=== PATIENT | female | born 1950 | race Caucasian/White ===

== ENCOUNTER 2016-06-30 15:08 | Inpatient (IN) | payer OTHER ==
[~2016-06-30] VITALS: Ht 157.5 cm; Wt 88.6 kg
[~2016-06-30 15:08] MED LIST: AMLODIPINE-BEN1 EAC3 PO; ASPIRIN325 MG PO; ATORVASTATIN CA80 MG PO; BUSPIRONE HCL5 MG PO; CATAPRES0.2 MG PO; CLOPIDOGREL75 MG PO; HYDROCHLOROTHIA50 MG PO; IMDUR120 MG PO; K-DUR20 MEQ PO; LANSOPRAZOLE30 MG PO; LIPITOR80 MG PO; LORAZEPAM1 MG PO; METOPROLOL SUCC50 MG PO; NICOTINE PATCH1 EAC2 TD; NITROSTAT0.4 MG SL; POTASSIUM CHLO10 ME3 PO; PRILOSEC20 MG PO; PRINIVIL20 MG PO; PROVENTIL HFA6.7 GM IH; SEREVENT DISKU50 MCG IH; SPIRIVA1 INHALATI IH; TRAMADOL HCL50 MG PO; ZETIA10 MG PO; ZOFRAN8 MG PO
[2016-06-30 16:17] LABS: HEMATOCRIT 23.1 % (36.0-46.0); MCH 29.1 PG (29.0-34.0); MCHC 33.3 G/DL (30.0-36.0); MCV 87.2 FL (83-99); RBC DIS.WIDTH-CV 13.9 % (11.8-14.6); RBC DIS.WIDTH-SD 42.3 % (39-53); RED BLOOD COUNT 2.65 M/uL (3.80-5.20)
[2016-06-30 16:26] LABS: WHITE BLOOD COUNT 3.7 K/uL (4.1-10.2)
[2016-06-30 16:30] LABS: CHLORIDE 104 mEq/L (99-109)
[2016-06-30 16:31] LABS: POTASSIUM 3.4 mEq/L (3.7-5.4); SODIUM 138 mEq/L (136-147)
[2016-06-30 16:32] LABS: GLUCOSE 93 mg/dL (70-99)
[2016-06-30 16:34] LABS: ANION GAP 8 MEQ/L (2-14)
[2016-06-30 16:36] LABS: GFR ESTIMATE (CALCULATED) > 59 mL/min/
[2016-06-30 16:37] LABS: UREA NITROGEN (BUN) 8 mg/dL (9-23)
[2016-06-30 16:41] LABS: TROP-I INTERPRETATION NEGATIVE; TROPONIN-I < 0.01 ng/mL (0.0-0.30)
[2016-06-30 17:04] LABS: MEAN PLAT.VOLUME 12.6 uM^3 (9.5-12.4); PLATELET COUNT 12 K/uL (156-360)
[2016-06-30 17:21] LABS: INFLUENZA A VIRAL ANTIGEN NEGATIVE; INFLUENZA B VIRAL ANTIGEN NEGATIVE
[2016-06-30] MEDS ORDERED: METOCLOPRAMIDE H5 MG PO (18:22)
[2016-06-30] MEDS ORDERED: OLANZAPINE10 MG PO (18:25)
[2016-06-30] MEDS ORDERED: MORPHINE SULFAT15 M1 PO (18:26)
[2016-06-30] MEDS ORDERED: CYMBALTA30 MG PO (18:26)
[2016-06-30 22:34] VITALS: BP 133/63
[2016-06-30 22:48] LABS: TROP-I INTERPRETATION NEGATIVE; TROPONIN-I < 0.01 ng/mL (0.0-0.30)
[2016-06-30 23:06] VITALS: BP 129/86
[2016-06-30 23:30] VITALS: BP 126/76
[2016-07-01] VITALS (29 sets, daily range): BP systolic 67–128; BP diastolic 38–67
[2016-07-01 06:34] LABS: ANISOCYTOSIS 1+; HYPOCHROMASIA 2+; TEAR DROP CELLS 1+
[2016-07-01 07:01] LABS: HEMATOCRIT 22.6 % (36.0-46.0); MCH 29.1 PG (29.0-34.0); MCHC 33.6 G/DL (30.0-36.0); MCV 86.6 FL (83-99); RBC DIS.WIDTH-CV 13.9 % (11.8-14.6); RBC DIS.WIDTH-SD 43.3 % (39-53); RED BLOOD COUNT 2.61 M/uL (3.80-5.20)
[2016-07-01 07:15] LABS: ANION GAP 8 MEQ/L (2-14); CHLORIDE 100 MEQ/L (99-109); GFR ESTIMATE (CALCULATED) > 59 mL/min/; GLUCOSE 115 mg/dL (70-99); POTASSIUM 3.8 MEQ/L (3.7-5.4); SAMPLE HEMOLYSIS CHECK 0; SAMPLE ICTERIC CHECK 0; SAMPLE LIPEMIA CHECK 0; SODIUM 136 MEQ/L (136-147)
[2016-07-01 07:18] LABS: UREA NITROGEN (BUN) 21 mg/dL (9-23)
[2016-07-01 07:26] LABS: TROP-I INTERPRETATION NEGATIVE; TROPONIN-I 0.02 ng/mL (0.0-0.30)
[2016-07-01 07:55] LABS: IMM.PLATELET FRACTION 2.1 (1-7)
[2016-07-01 07:56] LABS: MEAN PLAT.VOLUME 9.3 uM^3 (9.5-12.4); PLAT.SUFFICIENCY VERY DECREASED; PLATELET COUNT 12 K/uL (156-360); WHITE BLOOD COUNT 5.2 K/uL (4.1-10.2)
[2016-07-01 16:19] LABS: HEMATOCRIT 21.3 % (36.0-46.0); MCH 29.2 PG (29.0-34.0); MCHC 33.3 G/DL (30.0-36.0); MCV 87.7 FL (83-99); RBC DIS.WIDTH-CV 14.3 % (11.8-14.6); RBC DIS.WIDTH-SD 44.4 % (39-53); RED BLOOD COUNT 2.43 M/uL (3.80-5.20); WHITE BLOOD COUNT 3.8 K/uL (4.1-10.2)
[2016-07-01 16:29] LABS: CHLORIDE 104 mEq/L (99-109); POTASSIUM 3.7 mEq/L (3.7-5.4); SODIUM 138 mEq/L (136-147)
[2016-07-01 16:32] LABS: GLUCOSE 100 mg/dL (70-99)
[2016-07-01 16:33] LABS: ANION GAP 7 MEQ/L (2-14)
[2016-07-01 16:34] LABS: TOTAL BILIRUBIN 1.7 mg/dL (0.0-1.0)
[2016-07-01 16:35] LABS: ALKALINE PHOSPHATASE 84 IU/L (3-129); GFR ESTIMATE (CALCULATED) 59 mL/min/
[2016-07-01 16:36] LABS: IMM.PLATELET FRACTION 3.5 (1-7); MEAN PLAT.VOLUME 11.3 uM^3 (9.5-12.4); PLATELET COUNT 13 K/uL (156-360); UREA NITROGEN (BUN) 25 mg/dL (9-23)
[2016-07-01 17:38] LABS: METH RESISTANT S AUREUS PCR NEGATIVE (NEGATIVE)
[2016-07-01 17:46] LABS: IMM.RETIC FRACTION 22.7 % (3-19); RETIC HGB EQUIVALENT 37.3 (28-36); RETICULOCYTE COUNT 1.9 % (0.5-1.8)
[2016-07-01 17:48] LABS: PROBE CHECK PASS; SPECIMEN PROCESSING CONTROL PASS
[2016-07-01 18:41] LABS: D-DIMER LATEX NEGATIVE
[2016-07-01 18:55] LABS: SCHISTOCYTES RARE
[2016-07-01 19:04] LABS: D-DIMER ELISA 1.45 mg/L FEU (< 0.57); FIBRINOGEN 345 MG/DL (160-450); INTER. NORMALIZED RATIO 1.1; PROTHROMBIN TIME 11.1 (9.2-11.2); PTT 28.2 (25-32)
[2016-07-02] VITALS (32 sets, daily range): BP systolic 108–162; BP diastolic 47–68
[2016-07-02 04:48] LABS: CHLORIDE 109 mEq/L (99-109); POTASSIUM 3.5 mEq/L (3.7-5.4); SODIUM 137 mEq/L (136-147)
[2016-07-02 04:49] LABS: MAGNESIUM 1.4 mg/dL (1.3-2.7)
[2016-07-02 04:50] LABS: GLUCOSE 98 mg/dL (70-99)
[2016-07-02 04:52] LABS: ANION GAP 5 MEQ/L (2-14)
[2016-07-02 04:54] LABS: GFR ESTIMATE (CALCULATED) > 59 mL/min/
[2016-07-02 04:55] LABS: EOSINOPHIL (%) 2.1 % (0-5); EOSINOPHIL COUNT 0.1 K/uL (0-0.3); HEMATOCRIT 26.9 % (36.0-46.0); IMMATURE GRANULOCYTE (%) 4.7 % (0.0-0.7); IMMATURE GRANULOCYTE COUNT 0.2 K/uL; INSTRUMENT ABS NEUTROPHIL CT 3.3 K/uL; LYMPHOCYTE COUNT 0.5 K/uL (1.0-2.8); MCHC 34.6 G/DL (30.0-36.0); MCV 86.8 FL (83-99); MONOCYTE (%) 10.9 % (3-12); MONOCYTE COUNT 0.5 K/uL (0-0.8); NEUTROPHIL (%) 71.6 % (45-76); NEUTROPHIL COUNT 3.3 K/uL (1.8-6.4); RBC DIS.WIDTH-CV 14.1 % (11.8-14.6); RBC DIS.WIDTH-SD 43.2 % (39-53); UREA NITROGEN (BUN) 18 mg/dL (9-23); WHITE BLOOD COUNT 4.7 K/uL (4.1-10.2)
[2016-07-02 06:02] LABS: IMM.PLATELET FRACTION 3.5 (1-7); MEAN PLAT.VOLUME 10.4 uM^3 (9.5-12.4); PLAT.SUFFICIENCY DECREASED; PLATELET COUNT 11 K/uL (156-360)
[2016-07-02 18:40] LABS: HEMATOCRIT 26.9 % (36.0-46.0); MCH 29.6 PG (29.0-34.0); MCHC 34.2 G/DL (30.0-36.0); MCV 86.5 FL (83-99); RBC DIS.WIDTH-CV 14.3 % (11.8-14.6); RBC DIS.WIDTH-SD 44.1 % (39-53); RED BLOOD COUNT 3.11 M/uL (3.80-5.20); WHITE BLOOD COUNT 4.3 K/uL (4.1-10.2)
[2016-07-02 19:08] LABS: HEMATOLOGY COMMENT 1 SN; IMM.PLATELET FRACTION 4.4 (1-7); MEAN PLAT.VOLUME 10.6 uM^3 (9.5-12.4); PLAT.SUFFICIENCY VERY DECREASED; PLATELET COUNT 12 K/uL (156-360)
[2016-07-03] VITALS (11 sets, daily range): BP systolic 124–162; BP diastolic 50–94
[2016-07-03 06:28] LABS: MCH 29.6 PG (29.0-34.0); MCHC 34.6 G/DL (30.0-36.0); MCV 85.5 FL (83-99); RBC DIS.WIDTH-SD 42.5 % (39-53); RED BLOOD COUNT 3.04 M/uL (3.80-5.20)
[2016-07-03 06:41] LABS: ANION GAP 11 MEQ/L (2-14); CHLORIDE 102 MEQ/L (99-109); GFR ESTIMATE (CALCULATED) > 59 mL/min/; GLUCOSE 145 mg/dL (70-99); MAGNESIUM 1.9 mg/dl (1.3-2.7); POTASSIUM 3.5 MEQ/L (3.7-5.4); SAMPLE HEMOLYSIS CHECK 0; SAMPLE ICTERIC CHECK 0; SAMPLE LIPEMIA CHECK 0; SODIUM 136 MEQ/L (136-147); UREA NITROGEN (BUN) 12 mg/dL (9-23)
[2016-07-03 06:45] LABS: WHITE BLOOD COUNT 5.7 K/uL (4.1-10.2)
[2016-07-03 08:03] LABS: ABS NEUTROPHIL COUNT 5.4; ANISOCYTOSIS 1+; ATYPICAL LYMPHOCYTE 0.9 %; BAND NEUTROPHILS 5.2 % (0-8.0); BASOPHILS 0.9 %; EOSINOPHIL ABS CT 0; IMM.PLATELET FRACTION 1.3 (1-7); MACROCYTES 1+; MEAN PLAT.VOLUME 10.1 uM^3 (9.5-12.4); PLAT.SUFFICIENCY DECREASED; POIKILOCYTOSIS 1+; POLYCHROMASIA 1+; SMUDGE CELLS 5.2
[2016-07-03 08:04] LABS: LYMPHOCYTES 2.6 % (15.0-45.0); PLATELET COUNT 37 K/uL (156-360); SEG.NEUTROPHILS 90.4 % (46.0-76.0)
[2016-07-03 08:23] LABS: FIBRINOGEN 410 MG/DL (160-450); INTER. NORMALIZED RATIO 1.1; PROTHROMBIN TIME 11.3 (9.2-11.2); PTT 29.3 (25-32)
[2016-07-03 18:02] LABS: HEMATOCRIT 24.8 % (36.0-46.0); MCH 29.6 PG (29.0-34.0); MCHC 34.7 G/DL (30.0-36.0); MCV 85.2 FL (83-99); RBC DIS.WIDTH-CV 13.8 % (11.8-14.6); RBC DIS.WIDTH-SD 41.6 % (39-53); RED BLOOD COUNT 2.91 M/uL (3.80-5.20); WHITE BLOOD COUNT 5.4 K/uL (4.1-10.2)
[2016-07-03 18:24] LABS: ANION GAP 11 MEQ/L (2-14); CHLORIDE 102 MEQ/L (99-109); GFR ESTIMATE (CALCULATED) > 59 mL/min/; GLUCOSE 160 mg/dL (70-99); POTASSIUM 3.3 MEQ/L (3.7-5.4); SAMPLE HEMOLYSIS CHECK 0; SAMPLE ICTERIC CHECK 0; SAMPLE LIPEMIA CHECK 0; SODIUM 135 MEQ/L (136-147); UREA NITROGEN (BUN) 14 mg/dL (9-23)
[2016-07-03 18:44] LABS: IMM.PLATELET FRACTION 1.8 (1-7); MEAN PLAT.VOLUME 9.5 uM^3 (9.5-12.4); PLAT.SUFFICIENCY DECREASED; PLATELET COUNT 38 K/uL (156-360)
[2016-07-04] VITALS (17 sets, daily range): BP systolic 124–164; BP diastolic 56–94
[2016-07-04 05:59] LABS: EOSINOPHIL (%) 0 % (0-5); HEMATOCRIT 23.2 % (36.0-46.0); IMMATURE GRANULOCYTE (%) 2.3 % (0.0-0.7); IMMATURE GRANULOCYTE COUNT 0.1 K/uL; INSTRUMENT ABS NEUTROPHIL CT 5.6 K/uL; LYMPHOCYTE COUNT 0.2 K/uL (1.0-2.8); MCH 29.6 PG (29.0-34.0); MCHC 34.1 G/DL (30.0-36.0); MCV 86.9 FL (83-99); MONOCYTE (%) 3.6 % (3-12); MONOCYTE COUNT 0.2 K/uL (0-0.8); NEUTROPHIL (%) 90.6 % (45-76); NEUTROPHIL COUNT 5.6 K/uL (1.8-6.4); NRBC (%) 0.3 /100 WBC (0-0); RBC DIS.WIDTH-CV 14.2 % (11.8-14.6); RBC DIS.WIDTH-SD 43.2 % (39-53); RED BLOOD COUNT 2.67 M/uL (3.80-5.20); WHITE BLOOD COUNT 6.1 K/uL (4.1-10.2)
[2016-07-04 06:30] LABS: ANION GAP 8 MEQ/L (2-14); CHLORIDE 104 MEQ/L (99-109); GFR ESTIMATE (CALCULATED) > 59 mL/min/; GLUCOSE 165 mg/dL (70-99); MAGNESIUM 1.8 mg/dl (1.3-2.7); POTASSIUM 3.5 MEQ/L (3.7-5.4); SAMPLE HEMOLYSIS CHECK 0; SAMPLE ICTERIC CHECK 0; SAMPLE LIPEMIA CHECK 0; SODIUM 136 MEQ/L (136-147); UREA NITROGEN (BUN) 14 mg/dL (9-23)
[2016-07-04 06:33] LABS: ABS NEUTROPHIL COUNT 5.9; EOSINOPHIL ABS CT 0; IMM.PLATELET FRACTION 2.1 (1-7); LYMPHOCYTES 1.8 % (15.0-45.0); MEAN PLAT.VOLUME 10.7 uM^3 (9.5-12.4); METAMYELOCYTES 0.9 %; PLAT.SUFFICIENCY DECREASED; PLATELET COUNT 33 K/uL (156-360); SEG.NEUTROPHILS 97.3 % (46.0-76.0)
[2016-07-04 18:17] LABS: HEMATOCRIT 24.7 % (36.0-46.0); MCH 29.9 PG (29.0-34.0); MCV 87.9 FL (83-99); NRBC (%) 0.2 /100 WBC (0-0); RBC DIS.WIDTH-CV 14.4 % (11.8-14.6); RBC DIS.WIDTH-SD 43.8 % (39-53); RED BLOOD COUNT 2.81 M/uL (3.80-5.20)
[2016-07-04 18:34] LABS: ANION GAP 9 MEQ/L (2-14); CHLORIDE 104 MEQ/L (99-109); GFR ESTIMATE (CALCULATED) > 59 mL/min/; GLUCOSE 161 mg/dL (70-99); POTASSIUM 3.5 MEQ/L (3.7-5.4); SAMPLE HEMOLYSIS CHECK 0; SAMPLE ICTERIC CHECK 0; SAMPLE LIPEMIA CHECK 0; SODIUM 138 MEQ/L (136-147); UREA NITROGEN (BUN) 16 mg/dL (9-23)
[2016-07-04 18:43] LABS: IMM.PLATELET FRACTION 3.3 (1-7); MEAN PLAT.VOLUME 11.2 uM^3 (9.5-12.4); PLAT.SUFFICIENCY DECREASED; PLATELET COUNT 37 K/uL (156-360)
[2016-07-04 18:44] LABS: WHITE BLOOD COUNT 12.4 K/uL (4.1-10.2)
[2016-07-05] VITALS (13 sets, daily range): BP systolic 149–168; BP diastolic 63–79
[2016-07-05 06:44] LABS: EOSINOPHIL (%) 0 % (0-5); HEMATOCRIT 25.5 % (36.0-46.0); IMMATURE GRANULOCYTE (%) 4.8 % (0.0-0.7); IMMATURE GRANULOCYTE COUNT 0.5 K/uL; INSTRUMENT ABS NEUTROPHIL CT 9.9 K/uL; LYMPHOCYTE COUNT 0.5 K/uL (1.0-2.8); MCHC 33.7 G/DL (30.0-36.0); MCV 88.9 FL (83-99); MONOCYTE (%) 3.4 % (3-12); MONOCYTE COUNT 0.4 K/uL (0-0.8); NEUTROPHIL COUNT 9.9 K/uL (1.8-6.4); NRBC (%) 0.2 /100 WBC (0-0); RBC DIS.WIDTH-CV 14.7 % (11.8-14.6); RBC DIS.WIDTH-SD 44.5 % (39-53); RED BLOOD COUNT 2.87 M/uL (3.80-5.20); WHITE BLOOD COUNT 11.3 K/uL (4.1-10.2)
[2016-07-05 07:08] LABS: ANION GAP 8 MEQ/L (2-14); CHLORIDE 106 MEQ/L (99-109); GFR ESTIMATE (CALCULATED) > 59 mL/min/; GLUCOSE 142 mg/dL (70-99); MAGNESIUM 1.8 mg/dl (1.3-2.7); POTASSIUM 4.2 MEQ/L (3.7-5.4); SAMPLE HEMOLYSIS CHECK 0; SAMPLE ICTERIC CHECK 0; SAMPLE LIPEMIA CHECK 0; SODIUM 139 MEQ/L (136-147); UREA NITROGEN (BUN) 17 mg/dL (9-23)
[2016-07-05 08:11] LABS: IMM.PLATELET FRACTION 4.8 (1-7); MEAN PLAT.VOLUME 10.7 uM^3 (9.5-12.4); PLAT.SUFFICIENCY DECREASED; PLATELET COUNT 44 K/uL (156-360)
[2016-07-05 18:15] LABS: MCH 29.8 PG (29.0-34.0); MCHC 33.5 G/DL (30.0-36.0); NRBC (%) 0.3 /100 WBC (0-0); RBC DIS.WIDTH-SD 45.1 % (39-53); RED BLOOD COUNT 2.92 M/uL (3.80-5.20); WHITE BLOOD COUNT 12.8 K/uL (4.1-10.2)
[2016-07-05 18:37] LABS: ANION GAP 7 MEQ/L (2-14); CHLORIDE 106 MEQ/L (99-109); GFR ESTIMATE (CALCULATED) > 59 mL/min/; GLUCOSE 151 mg/dL (70-99); SAMPLE HEMOLYSIS CHECK 0; SAMPLE ICTERIC CHECK 0; SAMPLE LIPEMIA CHECK 0; SODIUM 138 MEQ/L (136-147); UREA NITROGEN (BUN) 18 mg/dL (9-23)
[2016-07-05 18:48] LABS: IMM.PLATELET FRACTION 3.6 (1-7); MEAN PLAT.VOLUME 10.4 uM^3 (9.5-12.4); PLAT.SUFFICIENCY DECREASED; PLATELET COUNT 43 K/uL (156-360)
[2016-07-06] VITALS (8 sets, daily range): BP systolic 150–179; BP diastolic 70–83
[2016-07-06 06:07] LABS: HEMATOCRIT 26.3 % (36.0-46.0); MCH 29.5 PG (29.0-34.0); MCHC 33.1 G/DL (30.0-36.0); MCV 89.2 FL (83-99); NRBC (%) 0.8 /100 WBC (0-0); RBC DIS.WIDTH-SD 44.2 % (39-53); RED BLOOD COUNT 2.95 M/uL (3.80-5.20); WHITE BLOOD COUNT 10.5 K/uL (4.1-10.2)
[2016-07-06 06:28] LABS: ANION GAP 5 MEQ/L (2-14); CHLORIDE 106 MEQ/L (99-109); GFR ESTIMATE (CALCULATED) > 59 mL/min/; GLUCOSE 148 mg/dL (70-99); MAGNESIUM 1.7 mg/dl (1.3-2.7); POTASSIUM 4.5 MEQ/L (3.7-5.4); SAMPLE HEMOLYSIS CHECK 0; SAMPLE ICTERIC CHECK 0; SAMPLE LIPEMIA CHECK 0; SODIUM 137 MEQ/L (136-147); UREA NITROGEN (BUN) 20 mg/dL (9-23)
[2016-07-06 07:07] LABS: ABS NEUTROPHIL COUNT 9.5; ANISOCYTOSIS 1+; EOSINOPHIL ABS CT 0; HYPOCHROMASIA 1+; IMM.PLATELET FRACTION 4.3 (1-7); INSTRUMENT ABS NEUTROPHIL CT 8.7 K/uL; LYMPHOCYTES 7.1 % (15.0-45.0); MEAN PLAT.VOLUME 9.9 uM^3 (9.5-12.4); MICROCYTOSIS 1+; NUCLEATED RBC'S 1.8; PLATELET COUNT 48 K/uL (156-360); POIKILOCYTOSIS 1+; POLYCHROMASIA 2+; SEG.NEUTROPHILS 90.2 % (46.0-76.0); TEAR DROP CELLS 1+
[2016-07-06 07:12] LABS: PLAT.SUFFICIENCY VERY DECREASED
[2016-07-06 14:37] LABS: Heparin Induced Plt Ab Negative (Negative)
[2016-07-06 17:53] LABS: HEMATOCRIT 28.1 % (36.0-46.0); MCH 29.8 PG (29.0-34.0); MCHC 32.7 G/DL (30.0-36.0); MCV 90.9 FL (83-99); MEAN PLAT.VOLUME 10.7 uM^3 (9.5-12.4); PLATELET COUNT 62 K/uL (156-360); RBC DIS.WIDTH-CV 15.6 % (11.8-14.6); RBC DIS.WIDTH-SD 45.6 % (39-53); RED BLOOD COUNT 3.09 M/uL (3.80-5.20); WHITE BLOOD COUNT 12.2 K/uL (4.1-10.2)
[2016-07-06 18:17] LABS: ANION GAP 9 MEQ/L (2-14); CHLORIDE 105 MEQ/L (99-109); GFR ESTIMATE (CALCULATED) > 59 mL/min/; GLUCOSE 153 mg/dL (70-99); POTASSIUM 4.3 MEQ/L (3.7-5.4); SAMPLE HEMOLYSIS CHECK 0; SAMPLE ICTERIC CHECK 0; SAMPLE LIPEMIA CHECK 0; SODIUM 138 MEQ/L (136-147); UREA NITROGEN (BUN) 20 mg/dL (9-23)
[2016-07-07] VITALS (7 sets, daily range): BP systolic 133–184; BP diastolic 43–86
[2016-07-07 06:11] LABS: HEMATOCRIT 28.1 % (36.0-46.0); MCHC 33.1 G/DL (30.0-36.0); MCV 90.6 FL (83-99); MEAN PLAT.VOLUME 11.2 uM^3 (9.5-12.4); PLATELET COUNT 79 K/uL (156-360); RBC DIS.WIDTH-CV 15.7 % (11.8-14.6); RBC DIS.WIDTH-SD 45.9 % (39-53); WHITE BLOOD COUNT 11.9 K/uL (4.1-10.2)
[2016-07-07 06:29] LABS: ANION GAP 6 MEQ/L (2-14); CHLORIDE 103 MEQ/L (99-109); GFR ESTIMATE (CALCULATED) > 59 mL/min/; GLUCOSE 143 mg/dL (70-99); MAGNESIUM 1.7 mg/dl (1.3-2.7); POTASSIUM 4.7 MEQ/L (3.7-5.4); SAMPLE HEMOLYSIS CHECK 0; SAMPLE ICTERIC CHECK 0; SAMPLE LIPEMIA CHECK 0; SODIUM 136 MEQ/L (136-147); UREA NITROGEN (BUN) 20 mg/dL (9-23)
[2016-07-07 07:18] LABS: ABS NEUTROPHIL COUNT 10.6; ANISOCYTOSIS 1+; EOSINOPHIL ABS CT 0; INSTRUMENT ABS NEUTROPHIL CT 9.5 K/uL; LYMPHOCYTES 1.8 % (15.0-45.0); MICROCYTOSIS 1+; MYELOCYTES 1.8 %; NUCLEATED RBC'S 1.8; OVALOCYTES 1+; PLAT.SUFFICIENCY DECREASED; POIKILOCYTOSIS 1+; SEG.NEUTROPHILS 89.3 % (46.0-76.0); TEAR DROP CELLS 1+
[2016-07-07 19:06] LABS: HEMATOCRIT 31.7 % (36.0-46.0); MCH 30.1 PG (29.0-34.0); MCHC 33.1 G/DL (30.0-36.0); MCV 90.8 FL (83-99); MEAN PLAT.VOLUME 10.2 uM^3 (9.5-12.4); NRBC (%) 0.9 /100 WBC (0-0); PLATELET COUNT 89 K/uL (156-360); RBC DIS.WIDTH-CV 16.2 % (11.8-14.6); RBC DIS.WIDTH-SD 45.8 % (39-53); RED BLOOD COUNT 3.49 M/uL (3.80-5.20); WHITE BLOOD COUNT 12.7 K/uL (4.1-10.2)
[2016-07-07 19:25] LABS: ANION GAP 8 MEQ/L (2-14); CHLORIDE 104 MEQ/L (99-109); SAMPLE HEMOLYSIS CHECK 0; SAMPLE ICTERIC CHECK 0; SAMPLE LIPEMIA CHECK 0; SODIUM 139 MEQ/L (136-147)
[2016-07-07 19:31] LABS: GFR ESTIMATE (CALCULATED) > 59 mL/min/; GLUCOSE 120 mg/dL (70-99); UREA NITROGEN (BUN) 20 mg/dL (9-23)
[2016-07-08 05:00] VITALS: BP 143/79
[2016-07-08 06:20] LABS: HEMATOCRIT 33.2 % (36.0-46.0); MCH 30.2 PG (29.0-34.0); MCHC 32.8 G/DL (30.0-36.0); MEAN PLAT.VOLUME 10.2 uM^3 (9.5-12.4); NRBC (%) 0.8 /100 WBC (0-0); PLATELET COUNT 102 K/uL (156-360); RBC DIS.WIDTH-CV 17.2 % (11.8-14.6); RBC DIS.WIDTH-SD 47.1 % (39-53); RED BLOOD COUNT 3.61 M/uL (3.80-5.20); WHITE BLOOD COUNT 10.1 K/uL (4.1-10.2)
[2016-07-08 06:40] LABS: ALKALINE PHOSPHATASE 73 IU/L (3-129); ANION GAP 8 MEQ/L (2-14); CHLORIDE 103 MEQ/L (99-109); GFR ESTIMATE (CALCULATED) > 59 mL/min/; POTASSIUM 4.2 MEQ/L (3.7-5.4); SAMPLE HEMOLYSIS CHECK 0; SAMPLE ICTERIC CHECK 0; SAMPLE LIPEMIA CHECK 0; SODIUM 139 MEQ/L (136-147); TOTAL BILIRUBIN 0.7 MG/DL (0.0-1.0); UREA NITROGEN (BUN) 20 mg/dL (9-23)
[2016-07-08 06:41] LABS: GLUCOSE 79 mg/dL (70-99)
[2016-07-08 07:31] VITALS: BP 162/79
[2016-07-08 07:39] LABS: ABS NEUTROPHIL COUNT 7.2; ANISOCYTOSIS 1+; BAND NEUTROPHILS 0.9 % (0-8.0); EOSINOPHIL ABS CT 0; METAMYELOCYTES 0.9 %; MYELOCYTES 2.7 %; NUCLEATED RBC'S 4.4; PLAT.SUFFICIENCY ADEQUATE; POLYCHROMASIA 1+; SEG.NEUTROPHILS 70.8 % (46.0-76.0)
[2016-07-08 11:26] VITALS: BP 146/76
[2016-07-08] MEDS ORDERED: ADVAIR HFA120 INHALA IH (11:59)
[2016-07-08] MEDS ORDERED: SPIRIVA RESPIMAT4 GM IH (11:59)
[2016-07-08] MEDS ORDERED: PREDNISONE10 MG PO (11:59)
[2016-07-08] MEDS ORDERED: VENTOLIN HFA18 GM IH (11:59)
[2016-07-08 16:00] LABS: UFH SRA Result Indeterminate (Negative)
== END 2016-07-08 15:00 | disposition home or self-care (01) | DRG 181 ==
LOC: EME 15:08 → EDOF 19:53 → 5WEST 19:53 → EDOF 19:53 → 5WEST 20:46 → 4WEST 07-01 13:34 → 5WEST 07-01 13:34 → 4WEST 07-01 16:00 → 5EAST 07-07 14:03
PROVIDERS: Emergency Medicine; Family Medicine; Hospitalist; Internal Medicine Critical Care Medicine; Internal Medicine Medical Oncology; Internal Medicine Nephrology; Obstetrics & Gynecology
PROC: 30233N1 Transfusion of Nonautologous Red Blood Cells into Peripheral Vein, Percutaneous Approach (ICD-10-PCS; principal; 2016-07-03)
PROC: 30233R1 Transfusion of Nonautologous Platelets into Peripheral Vein, Percutaneous Approach (ICD-10-PCS; 2016-07-05)
DX: C34.90 Malignant neoplasm of unspecified part of unspecified bronchus or lung (principal); J44.1 Chronic obstructive pulmonary disease with (acute) exacerbation; C79.31 Secondary malignant neoplasm of brain; D59.1 Other autoimmune hemolytic anemias; D61.818 Other pancytopenia; I42.9 Cardiomyopathy, unspecified; I95.9 Hypotension, unspecified; D69.6 Thrombocytopenia, unspecified; E87.6 Hypokalemia; I10 Essential (primary) hypertension; I25.10 Atherosclerotic heart disease of native coronary artery without angina pectoris; E78.5 Hyperlipidemia, unspecified; I27.2 Other secondary pulmonary hypertension; R52 Pain, unspecified; Z87.891 Personal history of nicotine dependence; Z92.21 Personal history of antineoplastic chemotherapy; Z95.5 Presence of coronary angioplasty implant and graft; I08.0 Rheumatic disorders of both mitral and aortic valves
CPT/HCPCS: 71010; 71020; 74000; 74176; 80048; 80048 91; 80053; 80202; 83010 90; 83735; 83880; 84100; 84484; 85007; 85025; 85027; 85045; 85060; 85378; 85379; 85384; 85610; 85730; 86022 90; 86850; 86880; 86900; 86901; 86920; 87040; 87502; 87641; 93005; 93306; 94640; 94640 76; 94799; 99202; 99281; 99284; G0378; J0692; J1940; J2405; J2920; J2930; J3370; J3475; J7030; J7040; J7050; J7512; P9016; P9035; P9037

== ENCOUNTER 2016-09-17 12:29 | Emergency (ER) | payer OTHER ==
[~2016-09-17] VITALS: Ht 160 cm; Wt 68.4 kg
[~2016-09-17 12:29] MED LIST changes: +ADVAIR HFA120 INHALA IH; +CYMBALTA30 MG PO; +METOCLOPRAMIDE H5 MG PO; +MORPHINE SULFAT15 M1 PO; +OLANZAPINE10 MG PO; +PREDNISONE10 MG PO; +SPIRIVA RESPIMAT4 GM IH; +VENTOLIN HFA18 GM IH
[2016-09-17 14:23] LABS: MCHC 33.2 G/DL (30.0-36.0); MCV 96.3 FL (83-99); MEAN PLAT.VOLUME 9.4 uM^3 (9.5-12.4); PLATELET COUNT 146 K/uL (156-360); RBC DIS.WIDTH-CV 15.3 % (11.8-14.6); RED BLOOD COUNT 3.53 M/uL (3.80-5.20); WHITE BLOOD COUNT 4.3 K/uL (4.1-10.2)
[2016-09-17 14:33] LABS: CHLORIDE 103 mEq/L (99-109); POTASSIUM 3.5 mEq/L (3.7-5.4); SODIUM 137 mEq/L (136-147)
[2016-09-17 14:35] LABS: GLUCOSE 121 mg/dL (70-99)
[2016-09-17 14:37] LABS: ANION GAP 8 MEQ/L (2-14)
[2016-09-17 14:39] LABS: GFR ESTIMATE (CALCULATED) > 59 mL/min/
[2016-09-17 14:40] LABS: UREA NITROGEN (BUN) 10 mg/dL (9-23)
[2016-09-17] MEDS ORDERED: NAPROSYN500 MG PO (15:38)
[2016-09-17 16:11] VITALS: BP 156/75
== END 2016-09-17 16:24 | disposition home or self-care (01) ==
LOC: EXP 12:29 → EME 12:29 → EXP 16:24
PROVIDERS: Nurse Practitioner Family
DX: R51 Headache (principal); Z85.118 Personal history of other malignant neoplasm of bronchus and lung; Z85.841 Personal history of malignant neoplasm of brain; D64.9 Anemia, unspecified; R11.2 Nausea with vomiting, unspecified; I10 Essential (primary) hypertension; Z79.82 Long term (current) use of aspirin; Z87.891 Personal history of nicotine dependence
CPT/HCPCS: 70450; 80048; 85027; 99281; 99284; J1200; J1885

== ENCOUNTER 2016-11-24 13:52 | Inpatient (IN) | payer OTHER ==
[~2016-11-24] VITALS: Ht 160 cm; Wt 72.3 kg
[~2016-11-24 13:52] MED LIST changes: +DECADRON4 MG PO; -K-DUR20 MEQ PO; +NAPROSYN500 MG PO
[2016-11-24 16:26] LABS: HEMATOCRIT 31.5 % (36.0-46.0); MCHC 34.6 G/DL (30.0-36.0); MCV 92.4 FL (83-99); RBC DIS.WIDTH-CV 14.6 % (11.8-14.6); RBC DIS.WIDTH-SD 46.9 % (39-53); RED BLOOD COUNT 3.41 M/uL (3.80-5.20)
[2016-11-24 16:29] LABS: CHLORIDE 99 mEq/L (99-109); POTASSIUM 3.4 mEq/L (3.7-5.4); SODIUM 139 mEq/L (136-147)
[2016-11-24 16:31] LABS: GLUCOSE 126 mg/dL (70-99)
[2016-11-24 16:32] LABS: ANION GAP 15 MEQ/L (2-14); WHITE BLOOD COUNT 1.8 K/uL (4.1-10.2)
[2016-11-24 16:35] LABS: GFR ESTIMATE (CALCULATED) > 59 mL/min/
[2016-11-24 16:36] LABS: UREA NITROGEN (BUN) 19 mg/dL (9-23)
[2016-11-24 17:21] LABS: ABS NEUTROPHIL COUNT 1.8; ANISOCYTOSIS 1+; BAND NEUTROPHILS 13.9 % (0-8.0); EOSINOPHIL ABS CT 0; IMM.PLATELET FRACTION 3.3 (1-7); INSTRUMENT ABS NEUTROPHIL CT 1.6 K/uL; LYMPHOCYTES 1.7 % (15.0-45.0); MACROCYTES 1+; MEAN PLAT.VOLUME 12.4 uM^3 (9.5-12.4); MICROCYTOSIS 1+; OVALOCYTES 1+; PLAT.SUFFICIENCY VERY DECREASED; PLATELET COUNT 17 K/uL (156-360); POIKILOCYTOSIS 1+; SEG.NEUTROPHILS 83.5 % (46.0-76.0)
[2016-11-24] MEDS ORDERED: K-DUR20 MEQ PO (20:19)
[2016-11-24] MEDS ORDERED: ZOFRAN ODT4 MG PO (20:25)
[2016-11-24] MEDS ORDERED: ATIVAN0.5 MG PO (20:27)
[2016-11-24] MEDS ORDERED: MS CONTIN,ORAMO15 M1 PO (20:31)
[2016-11-24] MEDS ORDERED: TEMOZOLOMIDE140 MG PO (20:36)
[2016-11-24] MEDS ORDERED: LIDOPAC1 EACH TP (20:42)
[2016-11-24 21:11] LABS: ADD MIUA? YES; BILIRUBIN SMALL; BLOOD SMALL; COLOR AMBER ((YELLOW)); GLUCOSE (STRIP) NEGATIVE; KETONES 20; LEUKOCYTES NEGATIVE; NITRITE NEGATIVE; PROTEIN (STRIP) 30; SPECIFIC GRAVITY 1.033 (1.000-1.030)
[2016-11-24 21:55] LABS: BACTERIA 3+ /HPF; CASTS NONE SEEN /LPF; CRYSTALS NONE SEEN; EPITHELIAL CELLS RARE /HPF; MUCUS 1+ /LPF; RED BLOOD CELLS RARE /HPF (0-5); UCUL ADDED? YES; WHITE BLOOD CELLS 0-5 /HPF (0-5)
[2016-11-24 22:06] VITALS: BP 138/62
[2016-11-25 00:07] VITALS: BP 175/75
[2016-11-25 06:06] LABS: MCH 33.2 PG (29.0-34.0); MCHC 35.6 G/DL (30.0-36.0); MCV 93.4 FL (83-99); RBC DIS.WIDTH-CV 14.7 % (11.8-14.6); RBC DIS.WIDTH-SD 48.4 % (39-53); RED BLOOD COUNT 2.89 M/uL (3.80-5.20)
[2016-11-25 06:24] LABS: ANION GAP 12 MEQ/L (2-14); CHLORIDE 102 MEQ/L (99-109); GFR ESTIMATE (CALCULATED) > 59 mL/min/; GLUCOSE 114 mg/dL (70-99); POTASSIUM 3.6 MEQ/L (3.7-5.4); SAMPLE HEMOLYSIS CHECK 0; SAMPLE ICTERIC CHECK 0; SAMPLE LIPEMIA CHECK 0; SODIUM 139 MEQ/L (136-147); UREA NITROGEN (BUN) 18 mg/dL (9-23)
[2016-11-25 06:31] LABS: ABS NEUTROPHIL COUNT 1.2; ANISOCYTOSIS 1+; BAND NEUTROPHILS 0.9 % (0-8.0); EOSINOPHIL ABS CT 0; HELMET CELLS 1+; IMM.PLATELET FRACTION 3.2 (1-7); INSTRUMENT ABS NEUTROPHIL CT 1.2 K/uL; LYMPHOCYTES 3.5 % (15.0-45.0); MACROCYTES 1+; MEAN PLAT.VOLUME 13.7 uM^3 (9.5-12.4); POIKILOCYTOSIS 1+; POLYCHROMASIA 1+; SEG.NEUTROPHILS 94.7 % (46.0-76.0); SPHEROCYTES 1+; TEAR DROP CELLS 1+
[2016-11-25 06:32] LABS: PLAT.SUFFICIENCY VERY DECREASED; PLATELET COUNT 15 K/uL (156-360); WHITE BLOOD COUNT 1.3 K/uL (4.1-10.2)
[2016-11-25 07:38] VITALS: BP 164/72
[2016-11-25 16:05] VITALS: BP 165/70
[2016-11-25 19:24] VITALS: BP 133/62
[2016-11-25 20:28] VITALS: BP 150/65
[2016-11-25 22:55] VITALS: BP 125/89
[2016-11-26 05:20] VITALS: BP 136/73
[2016-11-26 06:02] LABS: ALKALINE PHOSPHATASE 53 IU/L (3-129); ANION GAP 9 MEQ/L (2-14); CHLORIDE 101 MEQ/L (99-109); GFR ESTIMATE (CALCULATED) > 59 mL/min/; GLUCOSE 116 mg/dL (70-99); POTASSIUM 3.3 MEQ/L (3.7-5.4); SAMPLE HEMOLYSIS CHECK 0; SAMPLE ICTERIC CHECK 0; SAMPLE LIPEMIA CHECK 0; SODIUM 136 MEQ/L (136-147); TOTAL BILIRUBIN 1.9 MG/DL (0.0-1.0); UREA NITROGEN (BUN) 16 mg/dL (9-23)
[2016-11-26 06:21] LABS: ALKALINE PHOSPHATASE 50 IU/L (3-129); ANION GAP 11 MEQ/L (2-14); CHLORIDE 101 MEQ/L (99-109); GFR ESTIMATE (CALCULATED) > 59 mL/min/; GLUCOSE 119 mg/dL (70-99); MAGNESIUM 1.6 mg/dl (1.3-2.7); POTASSIUM 3.3 MEQ/L (3.7-5.4); SAMPLE HEMOLYSIS CHECK 0; SAMPLE ICTERIC CHECK 0; SAMPLE LIPEMIA CHECK 0; SODIUM 138 MEQ/L (136-147); UREA NITROGEN (BUN) 16 mg/dL (9-23)
[2016-11-26 06:26] LABS: HEMATOCRIT 23.9 % (36.0-46.0); MCHC 34.7 G/DL (30.0-36.0); MCV 92.3 FL (83-99); RBC DIS.WIDTH-CV 14.5 % (11.8-14.6); RED BLOOD COUNT 2.59 M/uL (3.80-5.20)
[2016-11-26 07:03] LABS: EOSINOPHIL (%) 0 % (0-5); IMMATURE GRANULOCYTE (%) 0.9 % (0.0-0.7); MONOCYTE (%) 5.4 % (3-12); MONOCYTE COUNT 0.1 K/uL (0-0.8); NEUTROPHIL (%) 91.9 % (45-76); PLAT.SUFFICIENCY DECREASED
[2016-11-26 07:05] LABS: WHITE BLOOD COUNT 1.1 K/uL (4.1-10.2)
[2016-11-26 07:06] LABS: PLATELET COUNT 11 K/uL (156-360)
[2016-11-26 07:39] VITALS: BP 150/67
[2016-11-26 11:59] VITALS: BP 147/60
[2016-11-26 17:45] VITALS: BP 158/70
[2016-11-26 19:21] VITALS: BP 145/66
[2016-11-26 23:59] VITALS: BP 132/58; BP 132/65
[2016-11-27] VITALS (13 sets, daily range): BP systolic 131–194; BP diastolic 64–89
[2016-11-27 05:47] LABS: ANION GAP 9 MEQ/L (2-14); CHLORIDE 98 MEQ/L (99-109); GFR ESTIMATE (CALCULATED) > 59 mL/min/; GLUCOSE 111 mg/dL (70-99); POTASSIUM 3.8 MEQ/L (3.7-5.4); SAMPLE HEMOLYSIS CHECK 0; SAMPLE ICTERIC CHECK 0; SAMPLE LIPEMIA CHECK 0; SODIUM 135 MEQ/L (136-147); UREA NITROGEN (BUN) 15 mg/dL (9-23)
[2016-11-27 06:26] LABS: HEMATOCRIT 25.1 % (36.0-46.0); MCHC 35.1 G/DL (30.0-36.0); MCV 91.3 FL (83-99); RBC DIS.WIDTH-CV 14.3 % (11.8-14.6); RBC DIS.WIDTH-SD 46.1 % (39-53); RED BLOOD COUNT 2.75 M/uL (3.80-5.20)
[2016-11-27 06:32] LABS: WHITE BLOOD COUNT 0.7 K/uL (4.1-10.2)
[2016-11-27 07:37] LABS: ABS NEUTROPHIL COUNT 0.6; ATYPICAL LYMPHOCYTE 0.5 %; BAND NEUTROPHILS 2.4 % (0-8.0); EOSINOPHIL ABS CT 0; IMM.PLATELET FRACTION 6.2 (1-7); INSTRUMENT ABS NEUTROPHIL CT 0.7 K/uL; LYMPHOCYTES 3.4 % (15.0-45.0); NUCLEATED RBC'S 0.5; OVALOCYTES 1+; PLAT.SUFFICIENCY DECREASED; POIKILOCYTOSIS 1+; SEG.NEUTROPHILS 89.9 % (46.0-76.0)
[2016-11-27 07:41] LABS: PLATELET COUNT 7 K/uL (156-360)
[2016-11-27 18:13] LABS: HEMATOCRIT 22.5 % (36.0-46.0); IMM.PLATELET FRACTION 3.5 (1-7); MCH 32.1 PG (29.0-34.0); MCHC 35.1 G/DL (30.0-36.0); MCV 91.5 FL (83-99); MEAN PLAT.VOLUME 12.7 uM^3 (9.5-12.4); PLAT.SUFFICIENCY VERY DECREASED; PLATELET COUNT 12 K/uL (156-360); RBC DIS.WIDTH-CV 13.9 % (11.8-14.6); RBC DIS.WIDTH-SD 44.6 % (39-53); RED BLOOD COUNT 2.46 M/uL (3.80-5.20); WHITE BLOOD COUNT 0.6 K/uL (4.1-10.2)
[2016-11-28] VITALS (8 sets, daily range): BP systolic 132–178; BP diastolic 67–78
[2016-11-28 06:25] LABS: HEMATOCRIT 23.1 % (36.0-46.0); MCH 32.8 PG (29.0-34.0); MCHC 36.4 G/DL (30.0-36.0); MCV 90.2 FL (83-99); RBC DIS.WIDTH-SD 45.2 % (39-53); RED BLOOD COUNT 2.56 M/uL (3.80-5.20)
[2016-11-28 06:27] LABS: WHITE BLOOD COUNT 0.6 K/uL (4.1-10.2)
[2016-11-28 06:33] LABS: IMM.PLATELET FRACTION 3.3 (1-7); PLATELET COUNT 5 K/uL (156-360)
[2016-11-28 06:35] LABS: PLAT.SUFFICIENCY VERY DECREASED
[2016-11-29 06:53] LABS: MCH 33.5 PG (29.0-34.0); MCHC 37.1 G/DL (30.0-36.0); MCV 90.2 FL (83-99); RBC DIS.WIDTH-CV 13.5 % (11.8-14.6); RBC DIS.WIDTH-SD 43.4 % (39-53); RED BLOOD COUNT 2.66 M/uL (3.80-5.20)
[2016-11-29 06:58] LABS: WHITE BLOOD COUNT 0.4 K/uL (4.1-10.2)
[2016-11-29 07:38] LABS: EOSINOPHIL (%) 0 % (0-5); IMM.PLATELET FRACTION 3.9 (1-7); INSTRUMENT ABS NEUTROPHIL CT 0.4 K/uL; MONOCYTE (%) 7.1 % (3-12); NEUTROPHIL (%) 88.1 % (45-76); NEUTROPHIL COUNT 0.4 K/uL (1.8-6.4)
[2016-11-29 08:06] LABS: PLAT.SUFFICIENCY VERY DECREASED; PLATELET COUNT 7 K/uL (156-360)
[2016-11-29 08:28] VITALS: BP 175/77
[2016-11-29] MEDS ORDERED: ATIVAN INTE2 MG/1 ML PO (08:58)
[2016-11-29] MEDS ORDERED: MORPHINE CON20 MG/M1 PO (09:38)
[2016-11-29] MEDS ORDERED: HYOSCYAMINE0.125 M2 PO (09:38)
[2016-11-29 11:30] VITALS: BP 150/64
[2016-11-29 15:06] VITALS: BP 168/66
[2016-11-30 07:12] VITALS: BP 172/77
== END 2016-11-30 09:51 | disposition hospice, home (50) | DRG 579 ==
LOC: DELPENDDIS → EME 13:52 → 4EAST 19:54 → EDOF 19:54 → 5EAST 19:54 → ENRESERV 19:56 → 5EAST 21:39 → ENRESERV 11-25 20:40 → 4EAST 11-25 22:22 → ENRESERV 11-27 20:17 → 5EAST 11-27 21:30 → ENPENDDIS 11-29 → EDPENDDISTM 11-30 09:30 → 5EAST 11-30 09:51
PROVIDERS: Hospitalist; Thoracic Surgery (Cardiothoracic Vascular Surgery)
DX: L89.154 Pressure ulcer of sacral region, stage 4 (principal); I11.0 Hypertensive heart disease with heart failure; I25.10 Atherosclerotic heart disease of native coronary artery without angina pectoris; J44.9 Chronic obstructive pulmonary disease, unspecified; L89.611 Pressure ulcer of right heel, stage 1; C78.00 Secondary malignant neoplasm of unspecified lung; C79.31 Secondary malignant neoplasm of brain; C79.51 Secondary malignant neoplasm of bone; C34.90 Malignant neoplasm of unspecified part of unspecified bronchus or lung; D61.818 Other pancytopenia; L89.150 Pressure ulcer of sacral region, unstageable; L89.529 Pressure ulcer of left ankle, unspecified stage; D89.9 Disorder involving the immune mechanism, unspecified; E78.5 Hyperlipidemia, unspecified; E43 Unspecified severe protein-calorie malnutrition; L08.9 Local infection of the skin and subcutaneous tissue, unspecified; E86.0 Dehydration; Z51.5 Encounter for palliative care; K75.9 Inflammatory liver disease, unspecified; I50.9 Heart failure, unspecified; B96.20 Unspecified Escherichia coli [E. coli] as the cause of diseases classified elsewhere; K21.9 Gastro-esophageal reflux disease without esophagitis; Z92.3 Personal history of irradiation; Z85.118 Personal history of other malignant neoplasm of bronchus and lung; Z86.73 Personal history of transient ischemic attack (TIA), and cerebral infarction without residual deficits; Z68.24 Body mass index [BMI] 24.0-24.9, adult; Z95.5 Presence of coronary angioplasty implant and graft; Z87.891 Personal history of nicotine dependence; Z79.82 Long term (current) use of aspirin; Z90.2 Acquired absence of lung [part of]; Z68.28 Body mass index [BMI] 28.0-28.9, adult; I25.2 Old myocardial infarction; Z82.49 Family history of ischemic heart disease and other diseases of the circulatory system; Z79.899 Other long term (current) drug therapy
CPT/HCPCS: 72193; 80048; 80053; 80069; 80076; 81003; 83605; 83735; 84134; 84466; 85025; 85027; 85049; 86850; 86900; 86901; 86920; 87040; 87070; 87075; 87076; 87086; 87185; 87205; 87801; 94640; 94640 76; 99281; 99285; A6260; J0690; J1200; J2543; J3370; J3475; J7030; J7040; J7050; J7120; J8540; P9035